=== PATIENT | male | born 1970 | race African-American/Black ===

== ENCOUNTER 2021-11-24 02:40 | Emergency (ER) | payer OTHER ==
[~2021-11-24] VITALS: Ht 182.9 cm; Wt 133.0 kg
[~2021-11-24 02:40] MED LIST: AMLODIPINE-BEN1 EAC1 PO; CYCLOBENZAPRINE10 MG PO; KETOROLAC TROME10 MG PO; TAMIFLU75 MG PO
[2021-11-24] MEDS ORDERED: PRAVASTATIN SOD20 MG PO (03:05)
[2021-11-24] MEDS ORDERED: CEPHALEXIN500 MG PO (03:58)
== END 2021-11-24 04:06 | disposition home or self-care (01) ==
LOC: ED 02:40
DX: H92.01 Otalgia, right ear (principal); I10 Essential (primary) hypertension; E11.9 Type 2 diabetes mellitus without complications; E78.00 Pure hypercholesterolemia, unspecified; Z79.899 Other long term (current) drug therapy
CPT/HCPCS: 99282